=== PATIENT | female | born 1965 | race Caucasian/White ===

== ENCOUNTER 2016-11-15 05:40 | Day surgery (SDC) | payer OTHER ==
[~2016-11-15] VITALS: Ht 162.6 cm; Wt 142.8 kg
[~2016-11-15 05:40] MED LIST: ALLERGY10 M1 PO; CALCIUM500 MG PO; CINNAMON500 MG PO; DETROL2 MG PO; FISH OIL 1,0001 EAC2 NG; HYDROCHLOROTHIA25 MG PO; JANUVIA50 MG PO; LOSARTAN-HCTZ1 EACH PO; LOVASTATIN10 MG PO; LOVASTATIN20 MG PO; METOPROLOL SUCC25 MG PO; MOBIC7.5 MG PO; MONTELUKAST SOD10 MG PO; NORCO 10-325 T1 EACH PO; ULTRAM50 MG PO; VENTOLIN HFA18 GM INH; VITAMIN C1000 M2 PO
--- NOTE | 2016-11-15 08:39 | NUR ---
11/15/16 0839 RebeccaMickey mazariegos SAT 100, O2 REMOVED.
--- NOTE | 2016-11-15 09:03 | NUR ---
ICED WATER AND POPSICLE GIVEN. CALL LIGHT W/IN REACH. FAMILY @ BS.
--- NOTE | 2016-11-15 09:30 | NUR ---
Patient resting comfortably at this time. Patient rates pain 4/10, denies needs. No s/s of bleeding or inflammation. Patient eating popsicle.
[2016-11-15] MEDS ORDERED: HYCET 7.5 MG-3473 ML PO (10:02)
--- NOTE | 2017-01-03 09:33 | OR ---
[facility] [address] [place], [place] [address] Signed DATE OF PROCEDURE: 11/15/16 PREOPERATIVE DIAGNOSES: Obstructive sleep apnea with tonsillar hypertrophy. POSTOPERATIVE DIAGNOSES: Obstructive sleep apnea with tonsillar hypertrophy. PROCEDURES: Tonsillectomy and palatopharyngoplasty. ANESTHESIA: General orotracheal, SCOOTER [place]ena. PREOPERATIVE HISTORY Yemi is a 51-year-old lady with obstructive sleep apnea, enlarged tonsils, difficulty tolerating CPAP. She was taken to the operating room for the above-mentioned procedures. OPERATIVE PROCEDURE AND FINDINGS After informed consent, the patient was taken to the operating room and placed in supine position, where general orotracheal anesthesia was induced. The patient and procedure were verified. The patient was repositioned. McIvor mouth gag placed into suspension. Headlight exam of the pharynx showed moderately hypertrophic obstructive tonsils. Left tonsil was grasped with a tenaculum, retracted medially, and removed from its fossa with mucosal sparing incision with Coblation. Field was dry after the procedure. Same procedure on the right tonsil. Tonsils were sent to pathology. Palatopharyngoplasty was then performed. The extent of excision was determined by digital palpation of the soft palate against the posterior pharyngeal wall. Basically, the superior tonsillar pole incisions were connected with Coblation. Transpalatal excision performed with a portion of the posterior tonsillar pillar. The specimen was removed and sent to pathology. Hemostasis was obtained with Coblation. Closure was with 4-0 interrupted Vicryl, interrupted reapproximating posterior and anterior tonsillar pillar with each other on each side, and posterior and anterior palatal mucosa across the midline. Excellent cosmetic closure was obtained. Hemostasis verified. The pharynx was suctioned clear of blood and secretions. The patient was awakened, extubated, and transported to the recovery room in good condition. No complications. ESTIMATED BLOOD LOSS: Minimal. SPECIMEN: To pathology. DRAINS: None. Electronically Signed By: MARTÍNEZ RAMOS MD 01/03/17 0933 PATIENT NAME: YEMI CHO OPERATIVE REPORT DATE OF : 69 PHYSICIAN: MARTÍNEZ RAMOS MD REPORT #: [id number] REPORT IS CONFIDENTIAL AND NOT TO BE RELEASED WITHOUT AUTHORIZATION [address] [place], [place] [address] Signed Martínez Ramos MD GC/Karyna /[id number] cc: BRYAN Anglin Electronically Signed By: MARTÍNEZ RAMOS MD 01/03/17 0933 PATIENT NAME: YEMI CHO OPERATIVE REPORT DATE OF : 69 PHYSICIAN: MARTÍNEZ RAMOS MD REPORT #: [id number] REPORT IS CONFIDENTIAL AND NOT TO BE RELEASED WITHOUT AUTHORIZATION
== END 2016-11-15 11:10 | disposition home or self-care (01) ==
LOC: DS 05:40
PROVIDERS: Otolaryngology
PROC: 0CBP0ZZ Excision of Tonsils, Open Approach (ICD-10-PCS; principal; 2016-11-15 06:45)
DX: J35.01 Chronic tonsillitis (principal); G47.33 Obstructive sleep apnea (adult) (pediatric); I10 Essential (primary) hypertension; E11.9 Type 2 diabetes mellitus without complications; E66.9 Obesity, unspecified; E78.00 Pure hypercholesterolemia, unspecified; K21.9 Gastro-esophageal reflux disease without esophagitis; Z88.5 Allergy status to narcotic agent; Z68.43 Body mass index [BMI] 50.0-59.9, adult; Z90.710 Acquired absence of both cervix and uterus; Z90.49 Acquired absence of other specified parts of digestive tract
CPT/HCPCS: 00170; 94644; J0330; J1100; J2250; J2405; J2704; J3010; J7120

== ENCOUNTER 2016-11-19 14:34 | Emergency (ER) | payer OTHER ==
[~2016-11-19] VITALS: Ht 162.6 cm; Wt 142.4 kg
[~2016-11-19 14:34] MED LIST changes: +HYCET 7.5 MG-3473 ML PO
[2016-11-19] MEDS ORDERED: HYCET 7.5 MG-3473 ML PO (15:15)
== END 2016-11-19 15:25 | disposition home or self-care (01) ==
LOC: ED 14:34
DX: G89.18 Other acute postprocedural pain (principal); E11.9 Type 2 diabetes mellitus without complications; I10 Essential (primary) hypertension; Z90.710 Acquired absence of both cervix and uterus; Z90.49 Acquired absence of other specified parts of digestive tract; Z88.8 Allergy status to other drugs, medicaments and biological substances; Z79.899 Other long term (current) drug therapy; Z79.891 Long term (current) use of opiate analgesic
CPT/HCPCS: 99283

== ENCOUNTER 2017-07-09 20:06 | Emergency (ER) | payer OTHER ==
[~2017-07-09] VITALS: Ht 162.6 cm; Wt 142.8 kg
[2017-07-09] MEDS ORDERED: GLYBURIDE2.5 MG PO (20:20)
[2017-07-09] MEDS ORDERED: AUGMENTIN 875-1 EACH PO (23:07)
--- NOTE | 2017-07-10 20:34 | EKG ---
[facility] [address] [place] [address] Signed Normal sinus rhythm When compared with ECG of 10-NOV-2016 12:52, No significant change was found Confirmed by FAITH DEMARCO MD ([id number]) on 07/10/2017 8:34:21 PM Electronically Signed By: FAITH DEMARCO MD 07/10/17 2034 PATIENT NAME: MARQUISYEMI ROQUE Electrocardiogram DATE OF : 69 PHYSICIAN: FAITH DEMARCO MD REPORT #: [id number] REPORT IS CONFIDENTIAL AND NOT TO BE RELEASED WITHOUT AUTHORIZATION
== END 2017-07-10 00:30 | disposition home or self-care (01) ==
LOC: ED 20:06
DX: J01.90 Acute sinusitis, unspecified (principal); J20.9 Acute bronchitis, unspecified; R50.9 Fever, unspecified; E11.9 Type 2 diabetes mellitus without complications; I10 Essential (primary) hypertension; Z79.899 Other long term (current) drug therapy; Z88.8 Allergy status to other drugs, medicaments and biological substances
CPT/HCPCS: 71046; 93005; 93010; 94640; 99283

== ENCOUNTER 2021-02-12 12:24 | Emergency (ER) | payer OTHER ==
[~2021-02-12] VITALS: Ht 162.6 cm; Wt 140.1 kg
[~2021-02-12 12:24] MED LIST changes: +AUGMENTIN 875-1 EACH PO; +GLYBURIDE2.5 MG PO
[2021-02-12] MEDS ORDERED: TRULICITY4.5 MG/0.5 SUB-Q (13:20)
[2021-02-12] MEDS ORDERED: VENTOLIN HFA18 GM INH (15:29)
--- NOTE | 2021-02-15 13:39 | EKG ---
[facility] [address] [facility] [place] [address] Signed Normal sinus rhythm Low voltage QRS Borderline ECG When compared with ECG of 09-JUL-2017 21:35, No significant change was found Confirmed by FAITH DEMARCO MD ([id number]) on 02/15/2021 1:39:06 PM Electronically Signed By: FAITH DEMARCO MD 02/15/21 1339 PATIENT NAME: CHOYEMI Electrocardiogram DATE OF : 69 PHYSICIAN: FAITH DEMARCO MD REPORT #: [id number] REPORT IS CONFIDENTIAL AND NOT TO BE RELEASED WITHOUT AUTHORIZATION
== END 2021-02-12 16:02 | disposition home or self-care (01) ==
LOC: ED 12:24
DX: U07.1 COVID-19 (principal); E11.9 Type 2 diabetes mellitus without complications; I10 Essential (primary) hypertension; G47.30 Sleep apnea, unspecified; Z88.8 Allergy status to other drugs, medicaments and biological substances; Z79.899 Other long term (current) drug therapy
CPT/HCPCS: 71045; 80053; 83735; 84484; 85025; 93005; 93010; 99285-25; C9803; U0003